=== PATIENT | male | born 1950 | race Caucasian/White ===

== ENCOUNTER 2024-12-14 12:06 | Emergency (ER) | payer MEDICARE, OTHER ==
[2024-12-14 12:28] VITALS: BP 144/66; PULSE 61
[2024-12-14] MEDS: Bacitracin Oint 1 GM U/D Packet TOP ONE (12:30)
[2024-12-14] MEDS: Diphtheria,Pertussis(Acell),Tetanus Vaccine 0.5 ML Syringe IM ONE (12:43)
== END 2024-12-14 12:50 | disposition home or self-care (01) ==
LOC: VM.ED 12:06
DX: S00.33XA Contusion of nose, initial encounter (principal); I10 Essential (primary) hypertension; Z23 Encounter for immunization; Z79.899 Other long term (current) drug therapy; Z79.82 Long term (current) use of aspirin; W01.198A Fall on same level from slipping, tripping and stumbling with subsequent striking against other object, initial encounter
CPT/HCPCS: 90471; 90715; 99283; 99283-25; A9270-GY